=== PATIENT | male | born 1985 | race Two or more races ===

== ENCOUNTER 2022-03-25 19:53 | Emergency (ER) | payer SELFPAY ==
[2022-03-25] MEDS ORDERED: Diphtheria,Pertussis(Acell),Tetanus Vaccine 0.5 ML Syringe IM ONE (20:22)
[2022-03-25] MEDS ORDERED: Ketorolac 30 MG/ML SDV IM STA (22:44)
== END 2022-03-26 00:55 | disposition home or self-care (01) ==
LOC: MW.ED 19:53
DX: S06.0X0A Concussion without loss of consciousness, initial encounter (principal); M25.511 Pain in right shoulder; I10 Essential (primary) hypertension; Z23 Encounter for immunization; M54.50 Low back pain, unspecified; M54.2 Cervicalgia; Y04.8XXA Assault by other bodily force, initial encounter; Y99.0 Civilian activity done for income or pay
CPT/HCPCS: 70450; 70486; 71045; 72100; 72125; 73030; 90471; 90715; 96372; 99284; J1885; 99285

== ENCOUNTER 2022-06-26 04:29 | Emergency (ER) | payer SELFPAY | END 2022-06-26 06:00 | LOC: MW.ED 04:29 | DX: J02.9 Acute pharyngitis, unspecified (principal); Z20.822 Contact with and (suspected) exposure to COVID-19 | CPT/HCPCS: 96372; 99282 ==